=== PATIENT | female | born 1940 | race Caucasian/White ===

== ENCOUNTER 2017-12-04 12:48 | Emergency (ER) | payer OTHER ==
[~2017-12-04] VITALS: Ht 152.4 cm; Wt 106.1 kg
[~2017-12-04 12:48] MED LIST: ALTACE5 MG; CARDURA XL4 MG/BOTTL; GLUCOPHAGE XR500 MG; LOSARTAN-HCTZ1 EAC1; PNEU16DI2; SYNTHROID125 MCG; VERAPAMIL ER100 MG
[2017-12-04] MEDS ORDERED: ELIQUIS5 MG (13:15)
[2017-12-04] MEDS ORDERED: LEVAQUIN500 MG PO (15:02)
[2017-12-04] MEDS ORDERED: MUPIROCIN22 GM TOP (15:02)
== END 2017-12-04 15:15 | disposition home or self-care (01) ==
LOC: ER 12:48
DX: S00.83XA Contusion of other part of head, initial encounter (principal); S50.811A Abrasion of right forearm, initial encounter; W18.09XA Striking against other object with subsequent fall, initial encounter; Y93.89 Activity, other specified; Y92.488 Other paved roadways as the place of occurrence of the external cause; Y99.8 Other external cause status